=== PATIENT | male | born 1980 | race Caucasian/White ===

== ENCOUNTER 2018-07-12 13:39 | Outpatient (CLI) | payer OTHER ==
--- NOTE | 2018-07-12 15:08 | Diagnostic Imaging Report ---
SITA ROBERSON [facility] [id number] [facility] [address] [address] Report Submission Date: Jul 12, 2018 11:49:02 AM [employer] Patient Study Name: TARA WORLEY Date: Jul 12, 2018 10:30:50 AM [employer]NER Modality Type: US Gender: M Description: [facility] : [birth year] Institution: [facility] Physician: SITA ROBERSON Examination: Ultrasound right vein History: Rt leg swelling Findings: Sonographic evaluation of the right lower extremity venous system from the groin to the popliteal fossa inclusive. Normal compressibility. No luminal filling defect. Normal waveforms and response to augmentation. No popliteal region fluid collection. Impression: No evidence for deep venous thrombosis. Electronically signed on Jul 12, 2018 11:49:02 AM [employer]NER by: Beny MACIAS
== END 2018-07-12 13:42 ==
LOC: RAD 13:39
PROVIDERS: ATTEND Family Medicine
DX: I83.023 Varicose veins of left lower extremity with ulcer of ankle (principal); L97.329 Non-pressure chronic ulcer of left ankle with unspecified severity; D68.9 Coagulation defect, unspecified
CPT/HCPCS: 93971